=== PATIENT | female | born 1980 ===

== ENCOUNTER 2016-09-04 11:40 | Outpatient (CLI) | payer OTHER ==
--- NOTE | 2016-09-04 15:05 | Magnetic Resonance Report ---
MRI BRAIN WITHOUT CONTRAST: 09/04/16 11:40:00 CLINICAL: Headache. TECHNIQUE: Axial diffusion, T1, T2, FLAIR, gradient echo T2*, and sagittal T1 sequences on a 1.5 Taylor magnet. FINDINGS: Normal ventricles and sulci. No restricted diffusion. A few scattered bilateral small subcortical white matter hyperintensities on FLAIR and T2. No mass or mass effect. No hemorrhage, edema or extra-axial collection. Normal pituitary and optic chiasm. The brainstem and cerebellum are normal. Intact vascular flow voids. Partial opacification of ethmoid sinuses. The rest of the sinuses are clear. The orbits, and soft tissues are normal. Normal calvarium and skull base. IMPRESSION: 1. Mild ethmoid sinusitis. 2. A few bilateral nonspecific subcortical white matter hyperintensities on FLAIR and T2. 3. No mass.
== END 2016-09-04 11:41 | disposition home or self-care (01) ==
LOC: MRI 11:40
PROVIDERS: ATTEND Psychiatry & Neurology Neurology
DX: R51 Headache (principal); J32.2 Chronic ethmoidal sinusitis
CPT/HCPCS: 70551